=== PATIENT | female | born 1960 | race Native Hawaiian/Other Pacific Islander ===

== ENCOUNTER 2018-09-27 08:55 | Outpatient (CLI) | payer OTHER | END 2018-09-27 22:22 | disposition home or self-care (01) | LOC: MAMMO 08:55 | DX: Z12.31 Encounter for screening mammogram for malignant neoplasm of breast (principal); R42 Dizziness and giddiness ==

== ENCOUNTER → 2019-02-20 | Outpatient (CLI) | payer OTHER | LOC: RAD 16:12 | DX: M19.90 Unspecified osteoarthritis, unspecified site (principal); M79.642 Pain in left hand ==

== ENCOUNTER 2019-03-25 08:26 | Outpatient (CLI) | payer OTHER ==
[2019-03-25 10:03] LABS: PLATELET COUNT 246 K/uL (152-353)
[2019-03-25 10:24] LABS: POTASSIUM 4.5 mmol/L (3.6-5.2)
== END 2019-03-25 19:32 | disposition home or self-care (01) ==
LOC: LAB 08:26
PROVIDERS: Physician Assistant
DX: I10 Essential (primary) hypertension (principal); E78.5 Hyperlipidemia, unspecified
CPT/HCPCS: 36415; 80053; 80061; 82306; 83036; 84439; 84443; 85027

== ENCOUNTER 2019-05-30 09:06 | Outpatient (CLI) | payer OTHER ==
[2019-05-30 09:26] LABS: PLATELET COUNT 263 K/uL (152-353)
== END 2019-05-30 22:25 | disposition home or self-care (01) ==
LOC: LABW 09:06
PROVIDERS: Physician Assistant
DX: E78.00 Pure hypercholesterolemia, unspecified (principal); D72.1 Eosinophilia
CPT/HCPCS: 36415; 80061; 85027

== ENCOUNTER 2019-11-27 08:14 | Outpatient (CLI) | payer OTHER ==
[2019-11-27 09:23] LABS: PLATELET COUNT 258 K/uL (152-353)
== END 2019-11-27 20:09 | disposition home or self-care (01) ==
LOC: LAB 08:14
PROVIDERS: Physician Assistant
DX: D72.1 Eosinophilia (principal)
CPT/HCPCS: 36415; 85027

== ENCOUNTER 2019-12-19 15:54 | Outpatient (CLI) | payer OTHER | END 2019-12-19 20:15 | disposition home or self-care (01) | LOC: MAMMO 15:54 | DX: Z12.31 Encounter for screening mammogram for malignant neoplasm of breast (principal); D72.1 Eosinophilia ==

== ENCOUNTER 2020-05-02 11:41 | Emergency (ER) | payer OTHER ==
[~2020-05-02] VITALS: Ht 160 cm; Wt 68.0 kg
[2020-05-02 11:54] VITALS: TEMP 99.4
[2020-05-02 12:20] LABS: PLATELET COUNT 290 K/uL (152-353)
[2020-05-02 12:27] LABS: POTASSIUM 3.5 mmol/L (3.6-5.2); SODIUM 143 mmol/L (136-145)
[2020-05-02 12:34] LABS: PARTIAL THROMBOPLASTIN TIME 22.1 SECONDS (24.5-33.6)
[2020-05-02 13:46] VITALS: BP 168/78
== END 2020-05-02 13:47 | disposition home or self-care (01) ==
LOC: ED 11:41
PROVIDERS: Hospitalist
DX: I10 Essential (primary) hypertension (principal); R42 Dizziness and giddiness
CPT/HCPCS: 80053; 82550; 83880; 84484; 85027; 85610; 85730; 93005; 99284

== ENCOUNTER 2020-05-06 09:15 | Outpatient (CLI) | payer OTHER | END 2020-05-06 21:07 | disposition home or self-care (01) | LOC: LABW 09:15 | DX: R73.9 Hyperglycemia, unspecified (principal) | CPT/HCPCS: 36415; 83036 ==

== ENCOUNTER 2020-05-15 07:56 | Outpatient (CLI) | payer OTHER | END 2020-05-15 21:28 | disposition home or self-care (01) | LOC: RESP 07:56 | DX: R06.00 Dyspnea, unspecified (principal) | CPT/HCPCS: 36415; 82565; 84520; Q9963 ==

== ENCOUNTER 2021-04-16 08:34 | Outpatient (CLI) | payer OTHER | END 2021-04-16 23:01 | disposition home or self-care (01) | LOC: MAMMO 08:34 | PROVIDERS: ATTEND Physician Assistant | DX: Z12.31 Encounter for screening mammogram for malignant neoplasm of breast (principal) ==

== ENCOUNTER 2022-06-27 08:26 | Outpatient (CLI) | payer OTHER ==
[2022-06-27 08:49] LABS: PLATELET COUNT 232 K/uL (152-353)
[2022-06-27 09:05] LABS: POTASSIUM 3.7 mmol/L (3.6-5.2)
== END 2022-06-27 18:46 | disposition home or self-care (01) ==
LOC: LABW 08:26
PROVIDERS: ATTEND Internal Medicine
DX: I10 Essential (primary) hypertension (principal); R82.998 Other abnormal findings in urine
CPT/HCPCS: 36415; 80053; 80061; 81002; 81015; 84439; 84443; 85027; 87077; 87086; 87088; 87186

== ENCOUNTER 2023-01-09 07:40 | Outpatient (CLI) | payer OTHER ==
[2023-01-09 08:13] LABS: PLATELET COUNT 261 K/uL (152-353)
[2023-01-09 08:28] LABS: POTASSIUM 3.9 mmol/L (3.6-5.2)
== END 2023-01-09 18:56 | disposition home or self-care (01) ==
LOC: LABW 07:40
PROVIDERS: ATTEND Internal Medicine
DX: I10 Essential (primary) hypertension (principal); E78.00 Pure hypercholesterolemia, unspecified; R82.90 Unspecified abnormal findings in urine
CPT/HCPCS: 36415; 80053; 80061; 81000; 84439; 84443; 85027; 87077; 87086; 87088; 87186